=== PATIENT | female | born 1935 | race Caucasian/White ===

== ENCOUNTER 2017-04-13 14:45 | Outpatient (CLI) | payer MEDICARE ==
--- NOTE | 2017-04-13 17:26 | Ultrasound Report ---
EXAM: CAROTID DOPPLER ULTRASOUND EXAM DATE: 04/13/2017 04:00 PM. CLINICAL HISTORY: History of aortic aneurysm. COMPARISON: None. TECHNIQUE: Real-time sonographic vascular imaging was performed by the pipe and test supervisor through the caroti d arterial system with a linear transducer utilizing color-flow, Doppler flow and spectral analysis. Multiple wire rope sales representative static images were saved for review. FINDINGS: Right: RCCA Prox: PSV 71 cm/sec. RCCA Dist: PSV 73 cm/sec, EDV 19 cm/sec. RECA: PSV 65 cm/sec. R Bulb: PSV 75 cm/sec, EDV 17 cm/sec, ICA/CCA ratio 1.03 , degree of stenosis <50%, plaque estimate <50%. YOVANI Prox: PSV 49 cm/sec, EDV 13 cm/sec, ICA/CCA ratio 0.67 , degree of stenosis <50%, plaque estim ate <50%. YOVANI Mid: PSV 40 cm/sec, EDV 13 cm/sec, ICA/CCA ratio 0.55 , degree of stenosis <50%, plaque estima te <50%. YOVANI Dist: PSV 40 cm/sec, EDV 13 cm/sec, ICA/CCA ratio 0.55 , degree of stenosis <50%, plaque estim ate <50%. RVA: PSV 49 cm/sec. RVA flow direction: Antegrade. Left: LCCA Prox: PSV 107 cm/sec. LCCA Dist: PSV 71 cm/sec, EDV 13 cm/sec. LECA: PSV 59 cm/sec. Damped L Bulb: PSV 67 cm/sec, EDV 15 cm/sec, ICA/CCA ratio 0.94 , degree of stenosis <50%, plaque estimate <50%. LICA Prox: PSV 63 cm/sec, EDV 16 cm/sec, ICA/CCA ratio 0.89 , degree of stenosis <50%, plaque estim ate <50%. LICA Mid: PSV 71 cm/sec, EDV 22 cm/sec, ICA/CCA ratio 1 , degree of stenosis <50%, plaque estimate <50%. LICA Dist: PSV 64 cm/sec, EDV 15 cm/sec, ICA/CCA ratio 0.9 , degree of stenosis <50%, plaque estima te <50%. LVA: PSV 21 cm/sec. LVA flow direction: To and Fro. Other: Two-dimensional findings show multifocal areas of calcified plaque in the internal carotids at their origins. IMPRESSION: No hemodynamically significant stenoses. Validated velocity measurements with angiographic measurements and velocity criteria are extrapolated from diameter data as defined by the Society of Radiologists in Ultrasound Consensus Conference Radi ology 2003; 229;340-346. [facility] Referring Provider Line: [phone] SITE ID: [id number]
== END 2017-04-13 14:46 | disposition home or self-care (01) ==
LOC: DI 14:45
PROVIDERS: ATTEND Internal Medicine
DX: Z86.79 Personal history of other diseases of the circulatory system (principal)
CPT/HCPCS: 93880